=== PATIENT | female | born 1985 | race Caucasian/White ===

== ENCOUNTER 2020-01-27 10:09 | Outpatient (CLI) | payer BC, SELFPAY ==
--- NOTE | ~2020-01-27 | US_ITS ---
EXAMINATION: US OB <=14 wk fetus w TV DATE: 01/27/2020 10:43 INDICATION: Gestational dating TECHNIQUE: Real-time transabdominal and transvaginal obstetric ultrasound. FINDINGS: No prior studies for comparison. The uterus measures 10.2 x 5.7 x 5.7 cm. There is an intrauterine gestational sac, with pole id entified. The crown rump length measures 2.1 cm, which correlates with a estimated gestational age o f 8 weeks 5 days. heart tones are identified measuring 178 BPM. There is a small subchorionic hemorrhage measuring 6 x 5 x 5 mm. No free fluid in the pelvis. IMPRESSION: 1. SL IUP with an EGA of 8 weeks, 5 days (EDC by current ultrasound of 09/02/2020). 2: Small subchorionic hemorrhage. Reviewed, dictated and finalized at location A. IMPRESSION: 1. SL IUP with an EGA of 8 weeks, 5 days (EDC by current ultrasound of ). 2: Small subchorionic hemorrhage.
== END 2020-01-27 10:10 | disposition home or self-care (01) ==
PROVIDERS: PCP Family Medicine; Visit Provider Nurse Practitioner
DX: Z36.87 Encounter for antenatal screening for uncertain dates (principal)
CPT/HCPCS: 76801; 76817

== ENCOUNTER 2020-02-11 10:41 | Outpatient (CLI) | payer BC, SELFPAY ==
--- NOTE | ~2020-02-11 | US_ITS ---
EXAMINATION: US OB <= 14 weeks fetus DATE: 02/11/2020 11:17 INDICATION: Subchorionic hematoma follow-up, first trimester TECHNIQUE: Real-time pelvic transabdominal and transvaginal ultrasound was performed. COMPARISON: 01/27/2020 FINDINGS: A single live intrauterine is present. No persistent subchorionic hemorrhage is i dentified. heart motion is identified measuring 169 beats per minute (bpm) by M-mode Doppler. T he left ovary is not visualized however no left adnexal abnormality is seen. The right ovary measures 2.3 x 2.6 x 1.7 cm. There is normal vascular flow in the right ovary. There is no free fluid in the pelvis. The crown rump length measures 5.1 cm , which correlates with an estimated gestational age of 11 weeks and 5 day(s) (+/-) 7 day(s). IMPRESSION: 1. No persistent subchorionic hemorrhage identified. Reviewed, dictated and finalized at location A.
== END 2020-02-11 10:42 | disposition home or self-care (01) ==
PROVIDERS: PCP Family Medicine; Visit Provider Obstetrics & Gynecology Gynecology
DX: O46.90 Antepartum hemorrhage, unspecified, unspecified trimester (principal); Z3A.00 Weeks of gestation of pregnancy not specified
CPT/HCPCS: 76801

== ENCOUNTER → 2020-04-05 12:52 | Outpatient (CLI) | payer BC, SELFPAY ==
--- NOTE | ~2020-04-05 | US_ITS ---
EXAMINATION: US OB >= 14 weeks Fetus DATE: 04/05/2020 13:36 INDICATION: Second trimester anatomic survey and dating TECHNIQUE: Real-time ultrasound of the pelvis was performed. COMPARISON: 02/11/2020 FINDINGS: There is a single living fetus in variable presentation. The placenta is anterior and 2.4 cm from the internal cervical os. heart rate is 149 beats per minute (bpm). cardiac activity and fe meka movement are noted. The amniotic fluid index is subjectively normal. The following anatomy was identified as normal: 4 chamber heart, outflow tracts are not well demonstrated 3 vessel cord cord insertion kidneys urinary bladder stomach spine diaphragm ventricles cisterna magna cerebellum The following biometric data were obtained: Biparietal diameter (BPD): 4.2 cm; head circumference (HC): 16.0 cm; abdominal circumference (AC): 13 .3 cm; femur length (FL): 2.8 cm. These measurements are concordant. Estimated weight is 254 g +/- 38 g, which correlates with the 55th percentile when 09/02/2020 is used as estimated date of delivery. As single measurements, these parameters are each equal to the following estimated gestational ages w ith ranges of +/- 2 standard deviations: BPD: 18 weeks 5 days ( 17 weeks 0 days - 20 weeks 3 days). HC: 18 weeks 6 days ( 17 weeks 3 days - 20 weeks 3 days). AC: 18 weeks 6 days ( 16 weeks 6 days - 20 weeks 6 days). FL: 18 weeks 4 days ( 16 weeks 5 days - 20 weeks 2 days). estimated gestational age based solely on measurements from this exam is 18 weeks 5 days +/- 1 weeks 2 days. IMPRESSION: 1. Single living fetus in variable presentation. 2. Estimated weight is 254 g +/- 38 g, which correlates with the 55th percentile when 09/02/2020 is used as estimated date of delivery. Reviewed, dictated and finalized at location A. IMPRESSION: 1. Single living fetus in variable presentation. 2. Estimated weight is 254 g +/- 38 g, which correlates with the 55th per centile when 09/02/2020 is used as estimated date of delivery.
== END ==
PROVIDERS: PCP Family Medicine; Visit Provider Obstetrics & Gynecology Gynecology
DX: Z36.9 Encounter for antenatal screening, unspecified (principal); Z3A.18 18 weeks gestation of pregnancy
CPT/HCPCS: 76805

== ENCOUNTER → 2020-05-03 09:58 | Outpatient (CLI) | payer BC, SELFPAY ==
--- NOTE | ~2020-05-03 | US_ITS ---
US OB limited 05/03/2020 10:34 Indication: Follow-up low lying placenta. Procedure: High-resolution Limited obstetrical ultrasound Comparison: 04/05/2020 Findings: There is a single living intrauterine in breech presentation. Placenta is anterio r measuring 4.2 cm to the cervix. Amniotic fluid volume is subjectively normal. Limited survey demonstrates normal choroid plexus and four-chamber heart with ventricular outflow tracts. Impression: 1: Single living intrauterine in breech presentation. 2: Anterior placenta without previa measuring 4.2 cm to the cervix. Reviewed, dictated and finalized at location B. Impression: 1: Single living intrauterine in breech presentation. 2: Anterior placenta without previa measuring 4.2 cm to the cervix.
== END ==
PROVIDERS: Visit Provider Obstetrics & Gynecology Gynecology
DX: O44.10 Complete placenta previa with hemorrhage, unspecified trimester (principal)
CPT/HCPCS: 76815

== ENCOUNTER 2020-08-24 06:57 | Inpatient (IN) | payer BC, SELFPAY ==
[2020-08-24] VITALS (81 sets, daily range): BP systolic 64–144; BP diastolic 42–127; PULSE 33–244; RESP 16; TEMP 36.1–37.1; O2SAT 83–100; BMI 28.6
[2020-08-24 07:46] LABS: Basophils Percent Auto 0.2 % (0.2-1.2); Eosinophils Absolute Auto 0.1 K/mm3 (0-0.3); Eosinophils Percent Auto 0.6 % (0-4.4); Hematocrit 33.4 % (37.0-47.0); Hemoglobin 11.3 g/dL (12.0-15.0); Immature Granulocyte Absolute 0.05 K/mm3 (0.00-0.031); Immature Granulocyte Percent A 0.5 % (0-0.5); Lymphocytes Absolute Auto 2.66 K/mm3 (0.9-3.2); Lymphocytes Percent Auto 28.6 % (18.3-44.2); Mean Corpuscular HGB Conc 33.8 g/dl (32-36); Mean Corpuscular Hemoglobin 30.9 pg (26-34); Mean Corpuscular Volume 91.3 fl (80-100); Mean Platelet Volume 10.2 fl (7.4-10.4); Monocytes Absolute Auto 0.6 K/mm3 (0.1-0.6); Neutrophils Percent Auto 64.1 % (45.5-73.1); Platelet Count Result 268 k/mm3 (150-375); Red Blood Count 3.66 M/mm3 (4.2-5.4); Red Cell Distribution Width 13.4 % (11.5-14.5); White Blood Count 9.3 K/mm3 (4.5-10.0)
--- NOTE | 2020-08-24 07:48 | WPDOBADMIT ---
Obstetrics - Admit Note Admission Note: record reviewed. No pertinent additions to the history and/or any subsequent changes in the physical findings that are not consistent with the expected course of the were found. Additions to the history and/or subsequent changes in the physical findings follow. Here for MIL at 39 wks. Patient did not tolerate exam and moved away and up the bed x 2 attempts. Cervix is 2/50/-2 posterior. Unable to ROM. FHTs reactive. Plan pitocin
[2020-08-24] MEDS: LACTATED RINGERS 1,000 ML 125 ML IV CONT ×2 (07:54→15:17)
[2020-08-24] MEDS: AMPICILLIN 2 GM/NS 100 ML 2 GM/100 ML BAG IVPB (07:55)
[2020-08-24] MEDS: OXYTOCIN 30 UNITS/NS 500 ML 30 UNITS/500 ML BAG IV CONT (07:55)
--- NOTE | 2020-08-24 08:28 | LDADM ---
This patient, Zoran Jewell, was admitted to Labor/Delivery/Recovery 107 on 08/24/20 at 06:57. Plans for labor, pain management and were discussed with patient. Patient/family oriented to hospital policies and general routines including ID bracelet, bed and alarms, visiting hours, pain management, procedures, bathroom and other care routines, personal items, smoking policy, room service/diet and guest tray routines, security routines, and visiting hours. Patient/Family are encouraged to report perceived risks to care and to ask questions if they do not understand what they are told or what they should do. See OBIX for further documentation.
[2020-08-24] MEDS: AMPICILLIN 1 GM/NS 50 ML 1 GM/50 ML BAG IVPB ×2 (11:58→15:50)
--- NOTE | 2020-08-24 13:12 | PM.OBPNVD ---
OB - PN: Subj Subjective Date/time seen: 08/24/20 13:12 Interval history: Cervix /-2 AROM with clear fluid OB - PN: Obj Data Labs CBC & Chem 7: 08/24/20 07:38 Labs: Laboratory Results - last 24 hr 08/24/20 08/24/20 07:38 07:38 WBC 9.3 RBC 3.66 L Hgb 11.3 L Hct 33.4 L MCV 91.3 MCH 30.9 MCHC 33.8 RDW 13.4 Plt Count 268 MPV 10.2 Immature Gran % (Auto) 0.5 Neut % (Auto) 64.1 Lymph % (Auto) 28.6 O'Brien % (Auto) 6.0 Eos % (Auto) 0.6 Baso % (Auto) 0.2 Lymph # (Auto) 2.66 O'Brien # (Auto) 0.6 Eos # (Auto) 0.1 Baso # (Auto) 0.0 Abs Immat Gran (auto) 0.05 H Absolute Neuts (auto) 6.0 Absolute Nucleated RBC 0.0 Nucleated RBC % 0.0 Blood Type O Positive Antibody Screen Negative OB - PN A/P Time Spent With Patient Time: Total time spent is greater than 50% in coordination of care (as documented) at patient's floor/unit and/or counseling patient:
--- NOTE | 2020-08-24 14:19 | P.PNAN_ITS ---
Anes - Eval Pre Procedure Procedure: labor epidural Date/Time: 08/24/20 14:19 Surgeon: Najma Preop Diagnosis: Pain during labor Pre Op Diagnosis: Induction of Labor Patient Data Age: 34 Gender: F Height: 5 ft 7 in Weight: 83 kg Last Vital Signs Temp 36.4 C L 08/24/20 09:00 Pulse 81 08/24/20 14:15 BP 110/72 08/24/20 14:15 Allergies Allergy/AdvReac Type Severity Reaction Status Date / Time erythromycin base Allergy Unknown Unknown Verified 08/02/20 12:43 Sulfa (Sulfonamide Allergy Unknown Unknown Verified 08/02/20 12:43 Antibiotics) Home Medications Medication Instructions Recorded Confirmed Type prenat.vits,kenn,dji-bsso-huzdv 1 tablet PO DAILY 08/02/20 08/02/20 History [ #2] Laboratory Tests 08/24/20 08/24/20 08/24/20 07:38 07:38 07:38 WBC 9.3 K/mm3 K/mm3 (4.5-10.0) RBC 3.66 M/mm3 L M/mm3 (4.2-5.4) Hgb 11.3 g/dL L g/dL (12.0-15.0) Hct 33.4 % L % (37.0-47.0) MCV 91.3 fl fl (80-100) MCH 30.9 pg pg (26-34) MCHC 33.8 g/dl g/dl (32-36) RDW 13.4 % % (11.5-14.5) Plt Count 268 k/mm3 k/mm3 (150-375) MPV 10.2 fl fl (7.4-10.4) Immature Gran % (Auto) 0.5 % % (0-0.5) Neut % (Auto) 64.1 % % (45.5-73.1) Lymph % (Auto) 28.6 % % (18.3-44.2) Richardson % (Auto) 6.0 % % (2.6-8.5) Eos % (Auto) 0.6 % % (0-4.4) Baso % (Auto) 0.2 % % (0.2-1.2) Lymph # (Auto) 2.66 K/mm3 K/mm3 (0.9-3.2) Richardson # (Auto) 0.6 K/mm3 K/mm3 (0.1-0.6) Eos # (Auto) 0.1 K/mm3 K/mm3 (0-0.3) Baso # (Auto) 0.0 K/mm3 K/mm3 (0.0-0.1) Abs Immat Gran (auto) 0.05 K/mm3 H K/mm3 (0.00-0.031) Absolute Neuts (auto) 6.0 K/mm3 K/mm3 (1.3-6.7) Absolute Nucleated RBC 0.0 K/mm3 K/mm3 (0.0-0.012) Nucleated RBC % 0.0 % % (0.0-0.2) RPR Pending Blood Type O Positive Antibody Screen Negative : gestational age (JOANNE 08/29/2020) Patient hx anesthesia problems: none Family hx anesthesia problems: none PMFSH Family History Family History Father Family history of cardiovascular disease Diabetes mellitus Sibling Diabetes mellitus Social History Social History Smoking status: Never smoker Alcohol intake: never Substance use: never Spiritual care concerns: No Exam Day of Procedure 08/24/20 14:19 Patient weight: normal Heart: regular rate and rhythm Lungs: clear to auscultation and normal air movement Neurological: alert and oriented
[2020-08-24] MEDS: ONDANSETRON INJ 4 MG/2 ML VIAL IV PUSH (18:31)
--- NOTE | 2020-08-24 20:12 | PM.OBPRVD ---
OB - Delivery Note Procedure Delivery date: 08/24/20 Procedure: events: Labor Induction Intrapartal events: None Induction method: AROM and per pitocin protocol Delivery monitor: external FHT and external uterine Route of delivery: Laceration Description: Perineal - 2nd Degree Delivery repair: vicryl (3-0 vicryl) Specimen: Yes (placenta due to placenta with foul odor) Quantitative Blood Loss (ml): 120 Anesthesia type: Epidural Disposition: floor Baby Date of : 08/24/20 Weeks of gestation at delivery: 39 Infant gender: Male Weight (pounds): 8 Weight (ounces): 1 presentation: vertex position: Left Occiput Anterior Placenta delivery description: Spontaneous cord vessel description: 3 Vessels score one minute: 7 score five minutes: 9
--- NOTE | 2020-08-24 20:13 | P.DS_ITS ---
DS: Admitting Diagnosis Admitting Diagnosis Admitting Diagnosis: IUP 39 wks MIL DS: Discharge Diagnosis Discharge Diagnosis (1) 39 weeks gestation of : Code(s): Z3A.39 - 39 weeks gestation of Status: Acute (2) (normal spontaneous vaginal delivery): Code(s): O80 - Encounter for full-term uncomplicated delivery Status: Acute OB - DS: Summary OB Procedures : Ultrasound OB Procedures Intrapartum: Spontaneous Vag Delivery OB Procedures: : None Peripartum Data Delivery Method: Natural Vaginal Laceration Description: Perineal - 2nd Degree complications: none Status at Discharge Functional status at discharge: independent ambulation Overall status at discharge: patient is progressing back to baseline Time Spent with Patient Time attestation: Total time spent providing and/or coordinating discharge services: DS: Data Data Completed and Pending Labs on day of discharge: Labs from last 24 hours 08/24/20 08/24/20 08/24/20 07:38 07:38 07:38 WBC 9.3 RBC 3.66 L Hgb 11.3 L Hct 33.4 L MCV 91.3 MCH 30.9 MCHC 33.8 RDW 13.4 Plt Count 268 MPV 10.2 Immature Gran % (Auto) 0.5 Neut % (Auto) 64.1 Lymph % (Auto) 28.6 Ballard % (Auto) 6.0 Eos % (Auto) 0.6 Baso % (Auto) 0.2 Lymph # (Auto) 2.66 Ballard # (Auto) 0.6 Eos # (Auto) 0.1 Baso # (Auto) 0.0 Abs Immat Gran (auto) 0.05 H Absolute Neuts (auto) 6.0 Absolute Nucleated RBC 0.0 Nucleated RBC % 0.0 RPR Pending Blood Type O Positive Antibody Screen Negative Discharge Plan Discharge Attending physician on discharge: Gia Yao Discharging Clinician: Gia Yao Anticipated Discharge Date/Time: 08/26/20 08:14 Patient Disposition: Home, Self-Care Activity: may shower and pelvic rest Diet: regular Patient Instructions: Antibiotic Form Stand Alone Forms: General Discharge Information Follow-up/Referrals: Gia Yao MD [Physician] - 6 Weeks Discharge Medications: New norethindrone-e.estradiol-iron [Minastrin 24 Fe] 1 mg-20 mcg(24) /75 mg (4) tablet,chewable 1 tablet PO DAILY Qty: 3 RF: 1 Continued #2 Tablet 1 tablet PO DAILY RF: 0 Date of admission: 08/24/20 06:57 Primary Care Provider: PHYSICIAN,EARTH SCIENCE PROFESSOR Admitting Provider: Gia Yao Attending physician on admission: Gia Yao Condition: Stable
[2020-08-24] MEDS: IBUPROFEN 600 MG TABLET PO (21:00)
[2020-08-24] MEDS: WITCH HAZEL 40 PADS 1 PAD TOPICAL (21:28)
[2020-08-24] MEDS: BENZOCAINE 20% AER SPR (*SP) 56 GM CAN 1 SPRAY TOPICAL (21:28)
[2020-08-25] MEDS: ACETAMINOPHEN 325 MG TABLET 650 MG PO ×4 (01:25→23:58)
[2020-08-25] MEDS: IBUPROFEN 600 MG TABLET PO ×3 (05:48→19:33)
[2020-08-25 05:51] LABS: Hematocrit 30.5 % (37.0-47.0); Hemoglobin 10.2 g/dL (12.0-15.0)
[2020-08-25 07:04] LABS: Rapid Plasma Reagin Non-Reactive (NonReactive)
[2020-08-25 07:30] VITALS: BP 119/75; PULSE 83; RESP 16; TEMP 36.9; O2SAT 100
--- NOTE | 2020-08-25 07:37 | WPDANLDPN2 ---
Anes-Prog Note L&D Date/Time: 08/25/20 07:37 Comfortable throughout: labor and delivery Neuraxial method: epidural Epidural/Spinal procedure site: tender (at injection site) Neuro status: Neuro function grossly intact. Cardiovascular status: normal Respiratory status: normal Airway patency: baseline Mental status: baseline Post-Op hydration status: normal Vital Signs: Last Vital Signs Temp 36.8 C 08/24/20 22:35 Pulse 81 08/24/20 22:35 Resp 16 08/24/20 22:35 BP 103/54 L 08/24/20 22:35 Pulse Ox 100 08/24/20 16:38 Pain score (VAS): 2/10 I/O: Intake & Output 08/24/20 08/24/20 08/25/20 15:59 23:59 07:59 Intake Total 1050 Output Total 160 Balance 1050 -160 Post-procedural complaints: none Patient feedback: Patient satisfied with anesthetic care.
[2020-08-25] MEDS: DOCUSATE SODIUM 100 MG CAPSULE PO (11:53)
[2020-08-25 19:30] VITALS: BP 122/66; PULSE 73; RESP 16; TEMP 36.6; O2SAT 100
[2020-08-26] MEDS: IBUPROFEN 600 MG TABLET PO (06:12)
--- NOTE | 2020-08-26 07:49 | PM.OBPNVD ---
OB - PN: Subj Subjective Date/time seen: 08/26/20 07:49 Interval history: Cervix /-2 AROM with clear fluid Patient comments: no complaints and pain well controlled baby status: doing well OB - PN: Obj Data Labs CBC & Chem 7: 08/25/20 05:42 OB - PN A/P Plan day: 2 Plan: routine care, discharge home, follow up 6 weeks and other (plans oc's until vas) Time Spent With Patient Time: Total time spent is greater than 50% in coordination of care (as documented) at patient's floor/unit and/or counseling patient: Exam : Bimanual exam- vagina & uterus: other (Uterus firm, nt @U)
[2020-08-26 08:05] VITALS: BP 124/73; PULSE 59; RESP 16; TEMP 36.5; O2SAT 100
[2020-08-27 07:58] VITALS: BP 126/70; PULSE 60; RESP 20; TEMP 37.1; O2SAT 100
== END 2020-08-26 13:43 | disposition home or self-care (01) | DRG 807 ==
LOC: ANHLDR 20:15 → ANHOB2 22:23
PROVIDERS: Admitting Provider Obstetrics & Gynecology Gynecology; Visit Provider Obstetrics & Gynecology Gynecology
DX: O99.824 Streptococcus B carrier state complicating childbirth (principal); Z37.0 Single live birth; O70.1 Second degree perineal laceration during delivery; O43.193 Other malformation of placenta, third trimester; Z3A.39 39 weeks gestation of pregnancy
CPT/HCPCS: 36415; 85014; 85018; 85025; 86592; 86850; 86900; 86901; 88307; A9270; J0290; J2405; J2590; J2795; J7120